=== PATIENT | male | born 1975 | race Caucasian/White ===

== ENCOUNTER → 2016-12-20 | Outpatient (CLI) | payer MEDICAID, OTHER | LOC: LAB 12:11 | PROVIDERS: ATTEND Emergency Medicine | DX: N39.0 Urinary tract infection, site not specified (principal); R30.0 Dysuria | CPT/HCPCS: 87086 ==

== ENCOUNTER → 2018-12-01 | Outpatient (CLI) | payer OTHER ==
--- NOTE | 2018-12-01 11:15 | RADIOLOGY REPORT (SQ) ---
EXAM DESCRIPTION: MRI CERVICAL SPINE COMBO COMPLETED DATE/TIME: 12/01/2018 10:48 am REASON FOR STUDY: CERVICAL RADICULOPATHY M54.12 RADICULOPATHY, CERVICAL REGION COMPARISON: CT cervical spine 08/26/2009 TECHNIQUE: Sagittal and Axial imaging includes T1, T2, STIR and gradient echo sequences. T1 post jyotsna olinium sequences. CONTRAST TYPE AND DOSE: 20 mL Dotarem. RENAL FUNCTION: Not indicated. ACR Type II contrast agent associated with few, if any, unconfounded cases of NSF LIMITATIONS: Motion artifact throughout the study particularly on the post contrasted images Metallic artifact from hardware C4 through C6 FINDINGS: ALIGNMENT: Normal. VERTEBRAE: Intact. BONE MARROW: Normal. No marrow replacement or reactive changes. DISCS: Post fusion from C4 through C6. Diffuse decreased T2 weighted intervertebral disc signal HARDWARE: Metallic disc spacers and anterior fixation plates at C4-5 and C5-6 CORD AND BASE OF BRAIN: Normal in size and signal intensity. SOFT TISSUES: No soft tissue masses. C1-C2: No significant spinal stenosis. C2-C3: No significant spinal stenosis or exit foraminal stenosis. C3-C4: Moderate right foraminal narrowing at C3-4 from right-sided facet and uncovertebral hypertroph y. Minimal posterior disc bulge without central or left foraminal stenosis. C4-C5: Post fusion. No significant spinal stenosis or exit foraminal stenosis. C5-C6: Post fusion. No significant spinal stenosis or exit foraminal stenosis. C6-C7: Mild bilateral foraminal narrowing results from facet and uncovertebral hypertrophy. Minimal posterior disc bulging is present, without central canal stenosis C7-T1: Mild bilateral facet hypertrophy. No significant spinal stenosis or exit foraminal stenosis. UPPER THORACIC: Incompletely imaged. No significant spinal stenosis or exit foraminal stenosis. ENHANCEMENT: No abnormal enhancement. OTHER: No other significant finding. IMPRESSION: Moderate right foraminal narrowing at C3-4. Post fusion at C4-5, C5-6, C6-7 without significant central or foraminal stenosis COMMENT: None. TECHNICAL DOCUMENTATION: JOB ID: [id number] [employer]- All Rights Reserved Reading location - IP/workstation name: [email or web address]
== END ==
LOC: RAD 10:06
PROVIDERS: ATTEND Physician Assistant
DX: M54.12 Radiculopathy, cervical region (principal)
CPT/HCPCS: 72156; A9576

== ENCOUNTER → 2019-02-19 | Outpatient (CLI) | payer OTHER ==
[2019-02-19 10:20] LABS: ABSOLUTE EOSINOPHILS # (AUTO) 0.1 10^3/uL (0.0-0.6); ABSOLUTE LYMPHOCYTES (AUTO) 1.7 10^3/uL (0.5-4.7); ABSOLUTE MONOCYTES (AUTO) 0.8 10^3/uL (0.1-1.4); ABSOLUTE NEUT (AUTO) 2.9 10^3/uL (1.7-8.2); BASOPHILS % (AUTO) 0.8 % (0-2); EOSINOPHILS % (AUTO) 2.5 % (0-6); HEMOGLOBIN 14.8 g/dL (13.5-17.0); MEAN CORPUSCULAR HEMOGLOBIN 29.8 pg (27.0-33.4); MEAN CORPUSCULAR HGB CONC 33.7 g/dL (32.0-36.0); MEAN CORPUSCULAR VOLUME 89 fl (80-97); MONOCYTES % (AUTO) 13.5 % (3-13); PLATELET COUNT 203 10^3/uL (150-450); RED BLOOD COUNT 4.96 10^6/uL (4.35-5.55); RED CELL DISTRIBUTION WIDTH 13.5 % (11.5-14.0); SEGMENTED NEUTROPHILS % (AUTO) 52.2 % (42-78); TOTAL CELLS COUNTED % (AUTO) 100 %; WHITE BLOOD COUNT 5.6 10^3/uL (4.0-10.5)
[2019-02-19 10:44] LABS: ALANINE AMINOTRANSFERASE 31 U/L (21-72); ALBUMIN 4.5 g/dL (3.5-5.0); ALKALINE PHOSPHATASE 85 U/L (38-126); ANION GAP 7 (5-19); ASPARTATE AMINO TRANSFERASE 28 U/L (17-59); BILIRUBIN,DIRECT 0.2 mg/dL (0.0-0.4); BILIRUBIN,TOTAL 0.5 mg/dL (0.2-1.3); BLOOD UREA NITROGEN 22 mg/dL (7-20); CALCIUM 9.4 mg/dL (8.4-10.2); CARBON DIOXIDE 30 mmol/L (22-30); CHLORIDE 105 mmol/L (98-107); CHOLESTEROL 196.29 mg/dL (0-200); GLUCOSE 109 mg/dL (75-110); TOTAL PROTEIN 7.3 g/dL (6.3-8.2); TRIGLYCERIDES 147 mg/dL (<150)
[2019-02-19 10:55] LABS: DIRECT LDL 121 mg/dL (<100)
== END ==
LOC: OD 09:06
PROVIDERS: ATTEND Nurse Practitioner Family
DX: E29.1 Testicular hypofunction (principal); E66.9 Obesity, unspecified; R73.03 Prediabetes
CPT/HCPCS: 36415; 80053; 80061; 83036; 84403; 85025

== ENCOUNTER → 2019-03-18 | Outpatient (CLI) | payer MEDICAID, OTHER ==
--- NOTE | 2019-03-18 09:40 | WOMENS IMAGING REPORT ---
EXAM DESCRIPTION: RETROPERITONEAL U/S COMPLETED DATE/TIME: 03/18/2019 9:26 am REASON FOR STUDY: CALCULUS OF KIDNEY;N20.0 N20.0 CALCULUS OF KIDNEY COMPARISON: None. TECHNIQUE: Dynamic and static grayscale images acquired of the kidneys and bladder and recorded on P ACS. Additional selected color Doppler and spectral images recorded. LIMITATIONS: None. FINDINGS: RIGHT KIDNEY: Normal size. Normal echogenicity. No solid or suspicious masses. Ther e is mild dilatation of the right renal pelvis. Largest diameter is 1.7 cm. No calcifications. LEFT KIDNEY: Normal size. Normal echogenicity. No solid or suspicious masses. No hydronephrosi s. No calcifications. BLADDER: No masses. OTHER FINDINGS: No other significant finding. IMPRESSION: Mild right-sided hydronephrosis. No other significant findings. TECHNICAL DOCUMENTATION: JOB ID: [id number] [employer]- All Rights Reserved Reading location - IP/workstation name: [email or web address]
== END ==
LOC: WI 08:50
PROVIDERS: ATTEND Nurse Practitioner Family
DX: N20.0 Calculus of kidney (principal); N13.30 Unspecified hydronephrosis
CPT/HCPCS: 76770